=== PATIENT | female | born 1965 | race Caucasian/White ===

== ENCOUNTER 2017-10-08 12:04 | Observation (INO) | payer BC ==
--- NOTE | 2017-10-07 13:33 | HISTORY & PHYSICAL EXAMINATION ---
DATE OF ADMISSION: 10/08/2017 CHIEF COMPLAINT: Right foot pain. HISTORY OF PRESENT ILLNESS: The patient is a 52-year-old female who we have been treating for a right fifth metatarsal fracture. Recent x-rays showed increased displacement of the fracture. Therefore, the decision was made to proceed with operative fixation. Due to her history of thrombocytopenia, her surgeries will be performed at the hospital. PAST MEDICAL HISTORY: Cirrhosis of liver, GERD, pancytopenia secondary to portal hypertension and hypersplenism, COPD, and type 2 diabetes, non-insulin requiring. PAST SURGICAL HISTORY: Cholecystectomy, hysterectomy, ORIF of left leg, shoulder surgery, and . MEDICATIONS: Albuterol 2 puffs q. 4 hours p.r.n. wheezing, bupropion SR 150 mg b.i.d., Zyrtec 10 mg daily, cranberry 1000 mg daily, glucosamine daily, Ativan 0.5 mg twice daily p.r.n. anxiety, Protonix 40 mg before first meal of the day, turmeric 500 mg daily, Effexor XR 75 mg 2 capsules daily, Feosol 325 mg 2 times daily, and Advair Diskus 1 puff 2 times daily. ALLERGIES: ADHESIVES AND AMOXICILLIN. SOCIAL HISTORY AND REVIEW OF SYSTEMS: Noncontributory. PHYSICAL EXAMINATION: GENERAL: Well-nourished and well-developed female, who appears her stated age. HEENT: Normocephalic and atraumatic. Extraocular movements intact. Oropharynx is pink and moist. NECK: Supple without adenopathy. LUNGS: Clear to auscultation bilaterally. HEART: Regular rate and rhythm. ABDOMEN: Soft, nontender, and nondistended. EXTREMITIES: The upper extremities are within normal limits. The right foot is moderately swollen. She has pain at the base of fifth metatarsal. X-RAYS: X-rays were reviewed and showed a displaced base of fifth metatarsal fracture, right foot. ASSESSMENT: Displaced base of fifth metatarsal fracture, right foot. PLAN: Risks versus benefits were discussed. Consent was obtained. The patient's primary care physician is Kaleb Thompson from [facility] in [place]. We will proceed with ORIF of the right fifth metatarsal fracture. Dr. Thompson is recommending 1 unit of platelets prior to her surgery. We will proceed as indicated.
[2017-10-07 16:03] VITALS: BMI 31.0
[~2017-10-08] VITALS: Ht 170.2 cm; Wt 90.9 kg
[~2017-10-08 12:04] MED LIST: ATROPINE SULFATE 0.1 MG/ML 5ML SYR IV PRN; BUPIVACAINE 0.25% 30 ML VIAL ONE; BUPR-102 PO; CLINDAMYCIN 600 MG/54 ML D5W IV SCH; CRANPOW PO; EpHEDrine SULFATE INJ 50 MG/ML AMP IV PRN; FENTANYL CITRATE INJ 50 MCG/1 ML 2 ML VIAL IV PRN; GLUC750C4 PO; HYDR-4380 PO; HYDROmorphone INJ 0.5 MG/0.5 ML SYR IV PRN; LACTATED RINGER'S 1000ML 1,000 ML IV SCH; LORA-741 PO; ONDANSETRON INJ 2 MG/ML 2 ML VIAL IV PRN; PHENYLEPHRINE 100MCG/ML 5ML SYR IV PRN; PRLSR20 PO; PROMETHAZINE HCL INJ 12.5 MG in SODIUM CHLORIDE 0.9% 50ML 50 ML IV PRN; ROPIVACAINE 0.5% 5 MG/ML 30 ML VIAL ONE; TURM500T PO; VENL-273 PO; VNTHFA/IN INH
[2017-10-08 12:36] VITALS: BP 107/62; PULSE 84; TEMP 36; O2SAT 96; Ht 170.2 cm; Wt 90.9 kg
[2017-10-08 13:10] LABS: BASO % 0.4 %; BASO ABS # 0.01 K/uL (0-0.2); EOS % 4.1 %; HEMATOCRIT 29.8 % (37-47); LYMPH % 31.1 %; LYMPH ABS # 0.75 K/uL (1.2-3.4); MEAN CELL VOLUME 74.1 fL (80-100); MEAN CORPUSCULAR HEMOGLOBIN 22.4 pg (25-34); MEAN CORPUSCULAR HGB CONC 30.2 g/dl (32-36); MONO % 12.9 %; MONO ABS # 0.31 K/uL (0.11-0.59); NEUT % 51.5 %; NEUT ABS # 1.24 K/uL (1.4-6.5); PLATELET COUNT 48 K/uL (130-400); RED CELL DISTRIBUTION WIDTH CV 16.6 % (11.5-14.5); RED CELL DISTRIBUTION WIDTH SD 45.4 fL (36.4-46.3); WHITE BLOOD COUNT 2.41 K/uL (4.8-10.8)
--- NOTE | 2017-10-08 13:48 | History & Physical Bridge Note ---
H&P Re-Evaluation Bridge Note: I have examined the patient, reviewed the History & Physical and in the interval since the performance of the History & Physical I have noted the following changes of clinical significance: No changes noted
[2017-10-08 13:53] VITALS: BP 105/67; PULSE 87; TEMP 36.7; O2SAT 99
[2017-10-08 14:13] VITALS: BP 115/57; PULSE 83; TEMP 36.7; O2SAT 96
[2017-10-08] MEDS ORDERED: NEOSTIGMINE METHYLSULFATE 5 MG/5 ML SYR ONE (14:25)
[2017-10-08] MEDS ORDERED: PROPOFOL IV EMULSION 10 MG/ML 20 ML VIAL IV ONE (14:25)
[2017-10-08] MEDS ORDERED: GLYCOPYRROLATE INJ 0.2 MG/ML VIAL ONE (14:25)
[2017-10-08] MEDS ORDERED: DEXAMETHASONE SOD INJ 4 MG/ML VIAL ONE (14:25)
[2017-10-08] MEDS ORDERED: FENTANYL CITRATE INJ 50 MCG/1 ML 2 ML VIAL ONE ×2 (14:25→14:26)
[2017-10-08] MEDS ORDERED: MIDAZOLAM HCL 1 MG/ML 2ML VIAL ONE (14:25)
[2017-10-08] MEDS ORDERED: ONDANSETRON INJ 2 MG/ML 2 ML VIAL ONE (14:25)
[2017-10-08] MEDS ORDERED: LIDOCAINE HCL 2% 2 ML VIAL (20MG/ML) ONE (14:25)
[2017-10-08] MEDS ORDERED: SCOPOLAMINE 1.5 MG TDSY TD ONE (14:26)
[2017-10-08 14:30] VITALS: BP 114/58; PULSE 87; TEMP 36.6; O2SAT 94
[2017-10-08] MEDS ORDERED: SCOPOLAMINE 1.5 MG TDSY TD SCH (14:30)
[2017-10-08] MEDS ORDERED: BUPIVACAINE 0.5 % 5 MG/1 ML MPF 30ML VIAL ONE (14:32)
[2017-10-08] MEDS ORDERED: DiphenhydrAMINE HCL 50 MG/ML VIAL ONE (14:36)
--- NOTE | 2017-10-08 14:44 | Progress Note ---
Progress Note Date of Service Oct 08, 2017. Progress Note Pt scheduled for ORIF R foot. Pt receiving platelets pre op for her thrombocytopenia. Upon completion of platelets, pt c/o itching, with redness hives noted on chest, left arm, right back. Denies SOB, CP, or swelling anywhere. 25mg of IV benadryl given and blood bank notified. Urine and blood samples will be drawn per protocol. Pt VS is stable.
[2017-10-08] MEDS ORDERED: DiphenhydrAMINE HCL 50 MG/ML VIAL IV ONE (14:45)
[2017-10-08] MEDS ORDERED: ZOLPIDEM TARTRATE 5 MG TAB PO PRN (15:30)
[2017-10-08] MEDS ORDERED: METOCLOPRAMIDE HCL INJ 5 MG/ML 2 ML VIAL IV PRN (15:30)
[2017-10-08] MEDS ORDERED: ONDANSETRON INJ 2 MG/ML 2 ML VIAL IV PRN (15:30)
[2017-10-08 16:00] VITALS: BP 117/68; PULSE 84; TEMP 37.1; O2SAT 94
[2017-10-08] MEDS: CHECK SCOPOLAMINE PATCH PLACEMENT SCH ×2 (16:58→23:06)
[2017-10-08] MEDS: D5W AND 1/2NSS 1,000 ML IV SCH (17:00)
[2017-10-08] MEDS: OXYCODONE/ACETAMINOPHEN 5-325 TAB PO PRN ×2 (17:01→22:21)
[2017-10-08] MEDS: BuPROPion SR 150 MG TABCR PO SCH (20:22)
[2017-10-08] MEDS ORDERED: IV FLUIDS COMPLETED PRN (21:30)
[2017-10-08 23:37] VITALS: BP 99/60; PULSE 77; TEMP 37.4; O2SAT 97
[2017-10-09] VITALS (8 sets, daily range): BP systolic 96–123; BP diastolic 57–72; PULSE 85–92; TEMP 36.7–37.2; O2SAT 90–99
[2017-10-09] MEDS: D5W AND 1/2NSS 1,000 ML IV SCH ×2 (05:31→20:31)
[2017-10-09] MEDS: CHECK SCOPOLAMINE PATCH PLACEMENT SCH (07:53)
[2017-10-09] MEDS: BuPROPion SR 150 MG TABCR PO SCH ×2 (09:00→20:31)
[2017-10-09] MEDS: VENLAFAXINE HCL XR 75 MG CAPXR PO SCH (09:00)
[2017-10-09 12:08] LABS: HEMATOCRIT 28.5 % (37-47); HEMOGLOBIN 8.6 g/dL (12.0-16.0); MEAN CELL VOLUME 73.8 fL (80-100); MEAN CORPUSCULAR HEMOGLOBIN 22.3 pg (25-34); RED CELL DISTRIBUTION WIDTH CV 16.7 % (11.5-14.5); RED CELL DISTRIBUTION WIDTH SD 45.7 fL (36.4-46.3); WHITE BLOOD COUNT 1.72 K/uL (4.8-10.8)
[2017-10-09 12:22] LABS: MEAN CORPUSCULAR HGB CONC 30.2 g/dl (32-36); PLATELET COUNT 43 K/uL (130-400)
[2017-10-09] MEDS ORDERED: MoRPHine SULFATE 2 MG/ML CARP IV PRN (13:30)
[2017-10-09] MEDS ORDERED: GLUCAGON FOR INJ 1 MG VIAL SQ PRN (14:30)
[2017-10-09] MEDS ORDERED: GLUCOSE 40% GEL 15 GM TUBE PO PRN (14:30)
[2017-10-09] MEDS ORDERED: DEXTROSE 50% 50 ML SYR IV PRN (14:30)
[2017-10-09] MEDS ORDERED: GLUCOSE 10 TABS/TUBE PO PRN (14:30)
[2017-10-09] MEDS ORDERED: DiphenhydrAMINE HCL 50 MG/ML VIAL IV SCH (15:00)
[2017-10-09] MEDS ORDERED: DiphenhydrAMINE INJ 25 MG in SYRINGE 0 ML IV ONE (15:00)
[2017-10-09] MEDS ORDERED: DEXAMETHASONE SOD INJ 4 MG/ML VIAL ONE (15:04)
[2017-10-09] MEDS ORDERED: FENTANYL CITRATE INJ 50 MCG/1 ML 2 ML VIAL ONE ×2 (15:04→16:02)
[2017-10-09] MEDS ORDERED: MIDAZOLAM HCL 1 MG/ML 2ML VIAL ONE (15:04)
[2017-10-09] MEDS ORDERED: PROPOFOL IV EMULSION 10 MG/ML 20 ML VIAL IV ONE (15:04)
[2017-10-09] MEDS ORDERED: ONDANSETRON INJ 2 MG/ML 2 ML VIAL ONE (15:04)
[2017-10-09] MEDS ORDERED: LIDOCAINE HCL 2% 2 ML VIAL (20MG/ML) ONE (15:04)
[2017-10-09] MEDS ORDERED: CEFAZOLIN SOD 2000MG/15 ML IV PUSH IV ONE (15:27)
[2017-10-09] MEDS ORDERED: NURSING VERBAL MED ORDER ONE (15:35)
[2017-10-09] MEDS ORDERED: BUPIVACAINE/EPINEPHRINE 0.5% MPF 1:200,000 30 ML VIAL ONE (15:36)
[2017-10-09] MEDS ORDERED: BUPIVACAINE 0.5 % 5 MG/1 ML MPF 30ML VIAL ONE (15:36)
[2017-10-09] MEDS ORDERED: BACITRACIN 50000 UNIT VIAL ONE (15:36)
[2017-10-09] MEDS ORDERED: ATROPINE SULFATE 0.1 MG/ML 5ML SYR IV PRN (15:45)
[2017-10-09] MEDS ORDERED: MEPERIDINE HCL 25 MG/ML CARP IV PRN (15:45)
[2017-10-09] MEDS ORDERED: LABETALOL HCL IV 5 MG/ML 20ML IV PRN (15:45)
[2017-10-09] MEDS ORDERED: ONDANSETRON INJ 2 MG/ML 2 ML VIAL IV PRN (15:45)
[2017-10-09] MEDS ORDERED: HYDROmorphone INJ 1 MG/ML SYR IV PRN (15:45)
[2017-10-09] MEDS ORDERED: EpHEDrine SULFATE INJ 50 MG/ML AMP IV PRN (15:45)
[2017-10-09] MEDS ORDERED: PHENYLEPHRINE 100MCG/ML 5ML SYR ONE (16:05)
[2017-10-09] MEDS ORDERED: EpHEDrine SULFATE 50MG/5ML SYR ONE (16:31)
--- NOTE | 2017-10-09 16:57 | DIAGNOSTIC IMAGING REPORT ---
R FOOT 2 VIEWS CLINICAL HISTORY: 52 years-old Female presenting with RT ORIF. TECHNIQUE: 3 fluoroscopic spot image(s) obtained as part of an intraoperative procedure. COMPARISON: None. FINDINGS/IMPRESSION: Cortical compression plate and screw fixation of the oblique fracture of the fifth metatarsal. Normal anatomic alignment. Please see surgical report for further details. Fluoroscopy dosage (mGy): 1.58. Fluoroscopy time: 45.6 seconds. Number of fluoroscopic spot images: 3. Electronically signed by: Fletcher Russo M.D. 10/09/2017 4:56 PM Dictated Date/Time: 10/09/2017 4:55 PM
--- NOTE | 2017-10-09 16:58 | [facility] Post Operative Brief Note ---
Immediate Operative Summary Operative Date Oct 09, 2017. Pre-Operative Diagnosis Displaced base of fifth metatarsal fracture, right foot Post-Operative Diagnosis Displaced base of fifth metatarsal fracture, right foot Procedure(s) Performed Right Foot Open Reduction Internal Fixation Fifth Metatarsal Fracture Surgeon Dr. Srikanth Fernandes Immigration Officer Surgeon(s) Gee Lira PA-C Estimated Blood Loss 3 ML Findings Consistent with Post-Op Diagnosis Specimens NONE PER SURGEON Drains None (Local) Anesthesia Type General Complication(s) none Disposition Accompanied Pt To Recover: no Disposition: Recovery Room / PACU
[2017-10-09] MEDS: INSULIN ASPART 100 UNITS/ML 3 ML PEN SC SCH ×2 (17:15→21:00)
[2017-10-09] MEDS ORDERED: HYDROmorphone INJ 2 MG/ML SYR/VIAL ONE (17:17)
--- NOTE | 2017-10-09 17:18 | Medical Consult ---
History General Date of Service: Oct 09, 2017. Stated Complaint: Non-Displaced Fracture Of Right 5TH Metatarsal Bon HPI The patient is a 52 year old female who presents to [facility] with complaints of Non-Displaced Fracture Of Right 5TH Metatarsal Bon. The patient's primary care provider is Laurita Ulloa D.O.. Patient is here for a right great toe fracture for possible pinning has a history of pancytopenia and ITP as well as COPD controlled with Advair she is currently without symptoms and her bipolar disease is controlled I spoke to her about her diabetes she says this is been diet controlled for many years and she does not take any oral medications or insulin for this Review of Systems ROS: well nourished well developed. No double vision blurry vision No problems with speech or swallowing No palpitations, chest pain or pressure, the patient not have any chest pressure during her event during transfusion No Wheezing or breathing issues, the patient did not have any breathing issues during her high event during transfusion No abdominal pain nausea vomiting diarrhea changes in appetite or weight No burning urine urine frequency or changes in color Patient has focal pain of her right great toe to movement and weightbearing No skin rashes or oral lesions No unusual bruising or bleeding No focused back pain or numbness or loss of strength No changes in memory or confusion Past Medical History Past Medical History: Past medical history is inclusive for pancytopenia hepatic steatosis splenomegaly ITP EBONY/BSO diet-controlled diabetes GERD COPD bipolar disorder obesity previous not followed lung nodule chronic anemia, she had a stress test in June 2014 with a preserved EF and no concerns of cardiac issues she had evaluations for both pulmonary and hematology most recently without any new recommendations of the exception of receiving platelet transfusion prior to procedure Social History Hx Tobacco Use In Past Year?: No (QUIT OVER 5 YRS AGO, SMOKED 15 YRS - 1PPD ) Smoking Status: Former Smoker Allergies Coded Allergies: Amoxicillin (Unverified Allergy, Unknown, UNKNOWN REACTION, 10/08/17) PER RECORDS Adhesives (Verified Adverse Reaction, Intermediate, MEDICAL TAPE - BLISTER /RED, 10/08/17) Current Medications Reported Home Medications Medications Dose Route/Sig Max Daily Dose Days Date Category Dose Instructions Ativan (Lorazepam) 0.5 Mg Tab 0.5 Mg PO UD PRN 10/07/17 Reported Turmeric (Turmeric (Curcuma Longa)) Unknown Strength Tab Unknown Dose PO QAM 10/07/17 Reported PT REPORTS SHE STOPPED THIS AT LEAST 2 WEEKS AGO Ventolin Hfa (Albuterol) Unknown Strength Aers Unknown Dose INH UD PRN 10/07/17 Reported USES WHEN FLARE UP OF ALLERGIES IN SPRING AND FALL Prilosec (Omeprazole) 20 Mg Capcr 40 Mg PO QAM 10/07/17 Reported Glucosamine (Glucosamine Sulfate) 750 Mg Cap 1,500 Mg PO QAM 11/25/13 Reported LAST DOSE WAS Thursday10/05/17 [Cranberry] 1,000 Mg PO QAM 11/25/13 Reported LAST DOSE WAS 10/05/17 Bupropion Hcl Sr (Bupropion Hcl (Smoking Deterre) 150 Mg Tab 1 Tab PO BID 11/25/13 Reported Venlafaxine Hcl Er (Venlafaxine Hcl) 75 Mg Tab 1 Tab PO QAM 11/25/13 Reported Hydrocodone/Acetaminophen (Hydrocodone-Acetaminophen) 1 Tab Tab 5-325 Mg PO UD PRN 11/25/13 Reported Physical Physical Exam Vital Signs: Date Time Temp Pulse Resp B/P (MAP) Pulse Ox O2 Delivery O2 Flow Rate FiO2 10/09/17 15:29 37.0 87 20 123/61 97 0.0 10/09/17 15:15 37.0 86 18 115/65 97 10/09/17 07:45 Room Air 10/08/17 23:37 37.4 77 16 99/60 (73) 97 Room Air 10/08/17 20:20 Room Air General Appearance: WELL-APPEARING, WD/WN, NO APPARENT DISTRESS Head: NORMOCEPHALIC, ATRAUMATIC Eyes: PERRLA, EOMI ENT: NORMAL EAR EXAM, NORMAL NASAL EXAM, NORMAL MOUTH EXAM Respiratory: BREATH SOUNDS NORMAL, CLEAR TO AUSCULTATION, CLEAR TO PERCUSSION Cardiovasular: REGULAR RATE/RHYTHM, NORMAL S1S2 Abdomen: NON TENDER, NORMAL BOWEL SOUNDS, NO REBOUND Upper Extremities: NO EDEMA, NO DEFORMITY Lower Extremities: NO EDEMA, NORMAL ROM, other (Tender right great toe) Neuro: ALERT, ORIENTED x 3, NORMAL MOTOR EXAM Diagnostics Labs Results Past 24 Hours Test 10/09/17 06:03 10/09/17 11:47 10/09/17 11:56 Range/Units Hepatitis C Antibody Screen NEG NEG White Blood Count 1.72 4.8-10.8 K/uL Red Blood Count 3.86 4.2-5.4 M/uL Hemoglobin 8.6 12.0-16.0 g/dL Hematocrit 28.5 37-47 % Mean Corpuscular Volume 73.8 80-100 fL Mean Corpuscular Hemoglobin 22.3 25-34 pg Mean Corpuscular Hemoglobin Concent 30.2 32-36 g/dl RDW Standard Deviation 45.7 36.4-46.3 fL RDW Coefficient of Variation 16.7 11.5-14.5 % Platelet Count 43 130-400 K/uL Platelet Estimate DECREASED Lab Scanned Report Blood Transfusion [id number] Impression Assessment and Plan 52-year-old female was a history of pancytopenia and ITP who had a preoperative evaluation by her face and fill packer who recommended transfusion of platelets prior to surgical procedure. Patient received 1 unit of platelet infusion on 10/08, developed hives in her chest was given Benadry and had her surgery postponed. I was asked to see the patient to try to coordinate a surgical procedure. I spoke both the anesthesiologist and the orthopedist. The orthopedist believes the surgery is mandatory due to risk of nonunion of fracture. Patient also has a history of diet-controlled diabetes and is concerned of altering her gait which may create further problems with callus formation and eventually ulcer. The patient states she has never had a problem with a transfusion reaction in the past and does believe she received packed red blood cells and platelets in the past for different procedures. She also states that in the past her platelet count has improved with steroids. Patient is agreeable to proceed to surgical procedure receiving intravenous Benadryl and oral prednisone prior to receiving platelet infusion will proceed in this manner today The remainder of her home medications will be maintained this is to include Wellbutrin and Effexor for her bipolar disorder Advair 250/50 for her history of COPD lorazepam as needed and Protonix will be glad to follow along the patient with you in the hospital
[2017-10-09] MEDS: FENTANYL CITRATE INJ 50 MCG/1 ML 2 ML VIAL IV PRN ×4 (17:19→17:39)
--- NOTE | 2017-10-09 17:42 | DIAGNOSTIC IMAGING REPORT ---
R FOOT MIN 3 VIEWS ROUTINE CLINICAL HISTORY: Postoperative examination COMPARISON: Intraoperative radiographs dated 10/09/2017 DISCUSSION: The fine bony details obscured by an overlying plaster cast. Postsurgical changes involve the fifth metatarsal. There is a lateral metallic plate and multiple screws. IMPRESSION: Postsurgical changes involving the fifth metatarsal. Plaster cast. Electronically signed by: Mane Blount M.D. 10/09/2017 5:41 PM Dictated Date/Time: 10/09/2017 5:40 PM
--- NOTE | 2017-10-09 18:34 | OPERATIVE REPORT ---
DATE OF OPERATION: 10/09/2017 PREOPERATIVE DIAGNOSIS: Right displaced base of the fifth metatarsal fracture. POSTOPERATIVE DIAGNOSIS: Same. PROCEDURE: Open reduction internal fixation right base of the fifth metatarsal displaced fracture with a Synthes stainless steel hook plate. SURGEON: Dr. Fernandes. GOAT HERDER: Gee Lira PA-C, PA-C who was present for patient positioning, sterile prep and drape, management of retractors and instruments. He was present through the critical portions of the case including wound closure, application of sterile dressing and transport of the patient to recovery. ANESTHESIA: General LMA with local. SPECIMENS: None. DRAINS: None. COMPLICATIONS: None. BLOOD LOSS: 5 mL PERTINENT HISTORY: This is a 52-year-old woman who had sustained a base of the fifth metatarsal fracture. Initially, it was attempted to be treated conservatively and closed; however, she had displacement of the fracture which was unacceptable and would produce a nonunion of the fracture. The patient was then scheduled for surgery initially with Dr. Weinberg. She has a known history of pancytopenia and low platelet count. She is getting a transfusion of platelets and had slight hypersensitivity reaction and a rash and discontinued the transfusion. The patient was admitted to the hospital for operative intervention on the next day after consultation with internal medicine service and deemed appropriate for surgery. At that point, the patient was then scheduled with Dr. Fernandes for surgery after she was optimized by the Department of Medicine with platelet transfusion. All potential risks, benefits, complications, alternatives, rehab, potential for incomplete relief of symptoms, need for further surgery, DVT, PE, , persistent pain, swelling, scarring, weakness, neurovascular injury, wound complications, hardware failure, nonunion, malunion were discussed with the patient. The patient decided to proceed with the procedure as indicated. PROCEDURE IN DETAIL: The patient was taken to the operative suite, placed supine on the operating table. I reviewed consent and identification of proper operative site, the patient was anesthetized, LMA was placed. Tourniquet was placed high on the right thigh over cast padding; however, the pneumatic tourniquet was not used during the case. Right lower extremity was then sterilely prepped and draped in usual fashion, elevated and exsanguinated with an Esmarch bandage and Esmarch tourniquet was applied over sterile surgical towel at the level of the ankle. Next, a 15 blade scalpel was used to make an incision over the lateral base of the fifth metatarsal. The incision was deepened through subcutaneous tissue. Meticulous hemostasis was achieved with cautery. Full-thickness skin flaps were developed. The fascia was then incised along the skin incision. The superficial cutaneous nerve was identified, freed, retracted and protected. Next, the abductor digiti minimi was identified, sharply elevated from the lateral aspect of the base of fifth metatarsal and retracted and protected in oblique manner. Next, the base of fifth metatarsal fracture was clearly identified and there was a diastasis noted of at least 1 cm. Next, the periosteum adjacent to the fracture was then sharply elevated with a 15 blade scalpel and then gently debrided with a rongeur and a dental pick. This was copiously irrigated with sterile normal saline. The bone ends were then debrided with a dental pick to bleeding bone and then the foot was held in eversion and the fracture fragment was then carefully reduced back to the fifth metatarsal with 2 bone reduction forceps and pinned with a single 2.0 mm guide pin placed under live fluoroscopic assistance, maintaining anatomic reduction. Next, a Synthes stainless steel hook plate was then placed around the proximal fragment, and using live fluoroscopic assistance, it was manipulated and stabilized with a single screw in the gliding hole. Next, a 3.5 mm cortical screw was then placed in the home run position from the base of the fifth metatarsal across the fracture, stabilizing and compressing the fracture through the plate into the more distal fragment into anatomic reduction and fixation under live fluoroscopic assistance. Next, multiple locking screws used to stabilize and lock the plate in place with anatomic alignment, reduction and position of the fracture fragment. Next, final radiographs were obtained, AP, lateral and oblique views using the fluoroscope. The incision was then copiously irrigated with sterile normal saline until clear. The deep periosteum and abductor were closed over the plate using interrupted 2-0 Vicryl sutures. The dermis was closed using buried interrupted 3-0 Vicryl and skin was closed with 4-0 nylon. 0.5% Marcaine was injected around the incision site for postop pain control and then a sterile compressive dressing and bulky Tano Chamberlain plaster splint was applied, overwrapped with an Benedict wrap with the foot held in neutral dorsiflexion and slight eversion. The tourniquet was released. The patient was awakened and taken to recovery in stable condition. I attest to the content of the Intraoperative Record and any orders documented therein. Any exception s are noted below.
[2017-10-09] MEDS: OXYCODONE/ACETAMINOPHEN 5-325 TAB PO PRN (22:38)
[2017-10-10 04:30] VITALS: BP 98/58; PULSE 86; TEMP 37.1; O2SAT 94
[2017-10-10] MEDS: OXYCODONE/ACETAMINOPHEN 5-325 TAB PO PRN ×2 (06:20→11:33)
[2017-10-10] MEDS: INSULIN ASPART 100 UNITS/ML 3 ML PEN SC SCH (08:00)
--- NOTE | 2017-10-10 08:01 | Orthopedic Progress Note ---
Orthopedic Progress Note Date of Service Oct 10, 2017. Subjective Post OP Day: 1 Reports: feeling well, pain controlled w PO medications, Denies: complaints, chest pain, SOB, nausea / vomiting, light headedness, calf pain Objective calves soft nontender, N/V intact, capillary refill less than 2 sec., dressing C /D/I, A&O x3, toes mobile Date Time Temp Pulse Resp B/P (MAP) Pulse Ox O2 Delivery O2 Flow Rate FiO2 10/10/17 04:30 37.1 86 18 98/58 (71) 94 Room Air 10/10/17 00:00 Room Air 10/09/17 23:18 36.7 92 18 100/60 (73) 95 Room Air 10/09/17 21:34 36.9 92 18 102/61 (75) 90 Room Air 10/09/17 20:17 37.2 91 18 109/65 (80) 98 Nasal Cannula 2.0 10/09/17 19:14 36.8 89 22 96/57 (70) 97 Nasal Cannula 2.0 10/09/17 18:45 36.8 91 20 106/72 (83) 99 Nasal Cannula 2.0 10/09/17 18:15 Nasal Cannula 2.0 10/09/17 18:15 99 Nasal Cannula 2.0 10/09/17 18:15 37.1 85 16 106/69 (81) 99 Nasal Cannula 2.0 10/09/17 18:00 36.9 86 16 104/69 97 Nasal Cannula 3 10/09/17 17:45 82 14 128/78 97 Nasal Cannula 3 10/09/17 17:35 79 14 123/71 100 Oxymask 10 10/09/17 17:25 82 16 125/76 100 Oxymask 10 10/09/17 17:16 37.2 92 14 101/61 100 Oxymask 10 10/09/17 15:29 37.0 87 20 123/61 97 0.0 10/09/17 15:15 37.0 86 18 115/65 97 Laboratory Results 24 Hours: Test 10/09/17 11:47 Hematocrit 28.5 % Hemoglobin 8.6 g/dL Assessment & Plan Assessment: POD#1 S/P ORIF 5th metatarsal fracture Plan: Medical Management Discharge home with self care Rolling scooter to be order for ambulation
[2017-10-10 08:05] VITALS: BP 93/53
[2017-10-10 08:40] LABS: MEAN CORPUSCULAR HGB CONC 30.4 g/dl (32-36)
[2017-10-10] MEDS ORDERED: OXYC-57 PO (08:42)
[2017-10-10 08:46] LABS: HEMATOCRIT 29.3 % (37-47); HEMOGLOBIN 8.9 g/dL (12.0-16.0); MEAN CORPUSCULAR HEMOGLOBIN 22.5 pg (25-34); RED CELL DISTRIBUTION WIDTH CV 16.3 % (11.5-14.5); RED CELL DISTRIBUTION WIDTH SD 44.6 fL (36.4-46.3); WHITE BLOOD COUNT 4.56 K/uL (4.8-10.8)
--- NOTE | 2017-10-10 08:47 | Discharge Instructions ---
Discharge Instructions Date of Service Oct 10, 2017. Admission Reason for Admission: Non-Displaced Fracture Of Right 5TH Metatarsal Bon Discharge Discharge Diagnosis / Problem: S/P ORIF right 5th metatarsal fracture Discharge Goals Goal(s): Decrease discomfort, Improve function Activity Recommendations Activity Limitations: per Instructions/Follow-up section . Instructions / Follow-Up Instructions / Follow-Up ACTIVITY RECOMMENDATIONS: Limitations: Non-weight bearing of right lower extremity for 6 weeks SPECIAL CARE INSTRUCTIONS: * Some drainage onto the dressing is normal and is no cause for alarm. * Some swelling is natural especially after walking. * When resting, keep your foot elevated above the level of your heart. * Call [facility] if you notice: -Increased drainage -Fever over 101 degrees F -Severe constant pain BANDAGE: * Leave bandage/cast in place for 2 weeks till follow up appointment FOLLOW UP VISIT WITH DR. PALOMINO If appointment is not already scheduled: Please call [facility] after you get home today to schedule a follow-up appointment for [address] Palomino at . Current Hospital Diet Patient's current hospital diet: Diabetes Type 2 Diet Discharge Diet Recommended Diet: Diabetes Type 2 Diet Procedures Procedures Performed: Right Foot Open Reduction Internal Fixation Fifth Metatarsal Fracture Pending Studies Studies pending at discharge: no Medical Emergencies . Who to Call and When: Medical Emergencies: If at any time you feel your situation is an emergency, please call 201 immediately. . Non-Emergent Contact Non-Emergency issues call your: Surgeon Call Non-Emergent contact if: temperature is above 101.5, your pain is worsening, wound has increased drainage, wound has increased redness . "Provider Documentation" section prepared by Tano Chandra. . [place] Drug Monitoring Program Search Results: patient reviewed within database, no issues identified
[2017-10-10] MEDS: BuPROPion SR 150 MG TABCR PO SCH (09:00)
[2017-10-10 09:10] LABS: PLATELET COUNT 63 K/uL (130-400)
[2017-10-10] MEDS: VENLAFAXINE HCL XR 75 MG CAPXR PO SCH (09:28)
[2017-10-10 10:43] VITALS: BP 93/53; PULSE 86; TEMP 37.1; O2SAT 94
--- NOTE | 2017-10-10 15:52 | Progress Note ---
Subjective Date of Service: Oct 10, 2017. Subjective this pt is doing well, she will be discharged to home, has stable platelets and tolerated platelet infusion. Review of Systems Constitutional: No fever, No chills Respiratory: No cough, No wheezing, No shortness of breath Cardiac: No chest pain, No edema Abdomen: No pain, No nausea, No vomiting Psychiatric: No depression symptoms, No anhedonism, No anxiety Objective Vital Signs Date Time Temp Pulse Resp B/P (MAP) Pulse Ox O2 Delivery O2 Flow Rate FiO2 10/10/17 10:43 37.1 86 18 94 Room Air 10/10/17 08:05 93/53 (66) 10/10/17 07:40 Room Air 10/10/17 04:30 37.1 86 18 98/58 (71) 94 Room Air 10/10/17 00:00 Room Air 10/09/17 23:18 36.7 92 18 100/60 (73) 95 Room Air 10/09/17 21:34 36.9 92 18 102/61 (75) 90 Room Air 10/09/17 20:17 37.2 91 18 109/65 (80) 98 Nasal Cannula 2.0 10/09/17 19:14 36.8 89 22 96/57 (70) 97 Nasal Cannula 2.0 10/09/17 18:45 36.8 91 20 106/72 (83) 99 Nasal Cannula 2.0 10/09/17 18:15 Nasal Cannula 2.0 10/09/17 18:15 99 Nasal Cannula 2.0 10/09/17 18:15 37.1 85 16 106/69 (81) 99 Nasal Cannula 2.0 10/09/17 18:00 36.9 86 16 104/69 97 Nasal Cannula 3 10/09/17 17:45 82 14 128/78 97 Nasal Cannula 3 10/09/17 17:35 79 14 123/71 100 Oxymask 10 10/09/17 17:25 82 16 125/76 100 Oxymask 10 10/09/17 17:16 37.2 92 14 101/61 100 Oxymask 10 Physical Exam General Appearance: WD/WN, no apparent distress Laboratory Results Last 24 Hours Test 10/09/17 17:20 10/09/17 20:42 10/10/17 08:04 10/10/17 08:32 Bedside Glucose 104 mg/dl 189 mg/dl 121 mg/dl White Blood Count 4.56 K/uL Red Blood Count 3.96 M/uL Hemoglobin 8.9 g/dL Hematocrit 29.3 % Mean Corpuscular Volume 74.0 fL Mean Corpuscular Hemoglobin 22.5 pg Mean Corpuscular Hemoglobin Concent 30.4 g/dl RDW Standard Deviation 44.6 fL RDW Coefficient of Variation 16.3 % Platelet Count 63 K/uL Platelet Estimate DECREASED Assessment and Plan 52-year-old female was a history of pancytopenia and ITP who had a preoperative evaluation by her bacteriologist fishery who recommended transfusion of platelets prior to surgical procedure. Patient received 1 unit of platelet infusion on 10/08, developed hives in her chest was given Benadry and had her surgery postponed. I was asked to see the patient to try to coordinate a surgical procedure. I spoke both the anesthesiologist and the orthopedist. The orthopedist believes the surgery is mandatory due to risk of nonunion of fracture. Patient also has a history of diet-controlled diabetes and is concerned of altering her gait which may create further problems with callus formation and eventually ulcer. ITP is stable and platelets are 63 at the time of discharge The remainder of her home medications will be maintained this is to include Wellbutrin and Effexor for her bipolar disorder Advair 250/50 for her history of COPD lorazepam as needed and Protonix
== END 2017-10-10 11:50 | disposition home or self-care (01) ==
LOC: C.ACU 12:04 → C.3E 15:27 → ENRESERV 15:49
DX: S92.354A Nondisplaced fracture of fifth metatarsal bone, right foot, initial encounter for closed fracture (principal); X58.XXXA Exposure to other specified factors, initial encounter; J44.9 Chronic obstructive pulmonary disease, unspecified; D61.818 Other pancytopenia; D69.3 Immune thrombocytopenic purpura; F31.9 Bipolar disorder, unspecified; K76.0 Fatty (change of) liver, not elsewhere classified; K21.9 Gastro-esophageal reflux disease without esophagitis; R16.1 Splenomegaly, not elsewhere classified; E11.9 Type 2 diabetes mellitus without complications; E66.9 Obesity, unspecified; Z68.31 Body mass index [BMI] 31.0-31.9, adult; Z88.1 Allergy status to other antibiotic agents; Z90.710 Acquired absence of both cervix and uterus; Z90.722 Acquired absence of ovaries, bilateral; Z90.79 Acquired absence of other genital organ(s); Z87.891 Personal history of nicotine dependence; Z90.49 Acquired absence of other specified parts of digestive tract